=== PATIENT | female | born 1990 | race African-American/Black ===

== ENCOUNTER 2017-10-29 00:54 | Inpatient (IN) ==
[2017-10-29] MEDS ORDERED: BUTORPHANOL 2 MG/ML VIAL IV PRN (01:12)
[2017-10-29] MEDS ORDERED: MEPERIDINE 50 MG/1 ML VIAL IM PRN (01:12)
[2017-10-29] MEDS ORDERED: ONDANSETRON 4 MG/2 ML VIAL IV PRN (01:12)
[2017-10-29] MEDS: LACTATED RINGERS 1,000 ML IV SCH ×2 (01:15→02:30)
[2017-10-29 01:35] LABS: Basophils % 0.2 % (0.0-0.8); Eosinophils # 0.1 10*3/uL (0.0-0.87); Eosinophils % 0.7 % (0.00-10.9); Hematocrit 30.2 VOL% (35.7-47.0); Hemoglobin 9.7 GM/DL (12.0-16.0); Immature Granulocytes % 0.9 %; Immature Granulocytes Absolute 0.13 #; Lymphocytes # 3.2 10*3/uL (1.4-4.0); Lymphocytes % 21.4 % (21.3-54.2); Mean Corpuscular HGB Conc 32.1 GM/DL (32-36); Mean Corpuscular Hemoglobin 26 PG (27-34); Mean Corpuscular Volume 80.1 FL (87-102); Mean Platelet Volume 10.6 FL (9.6-12.0); Monocytes # 1.2 10*3/uL (0.11-0.8); Neutrophils # 10.2 10*3/uL (1.4-7.4); Neutrophils % 68.8 % (38.7-73.9); Platelet Count 282 T/CUMM (130-400); Red Blood Count 3.77 MC/CUMM (3.8-5.5); Red Cell Distribution Width 14.5 % (9.3-17.3); White Blood Count 14.8 T/CUMM (4-12)
[2017-10-29] MEDS ORDERED: OXYTOCIN/LR 20 UNIT/1,000 ML BAG IV ONE ×2 (01:41→14:34)
[2017-10-29 01:42] LABS: Apearance,Urine Slightly Hazy (Clear); Bilirubin,Urine Negative (Negative); Blood, Urine Small mg/dL (Negative); Glucose,Urine (UA) Negative (Negative); Ketones,Urine 80 mg/dL (Negative); Mucus,Urine Occasional /LPF (Occasional); Nitrite,Urine Negative (Negative); Protein,Urine Negative; RBC,Urine 1 /HPF (0-4); Squamous Epithelial Cell,Urine Occasional /HPF (0-10); Urine Color Yellow (Yellow); Urine Specific Gravity 1.017 (1.001-1.035); Urine Urobilinogen < 2.0 EU/DL (0.2-1.0); WBC,Urine 3 /HPF (0-6)
[2017-10-29 01:57] LABS: Alanine Aminotransferase 19 U/L (13-56); Alkaline Phosphatase 199 U/L (45-117); Aspartate Amino Transferase 16 U/L (0-37); Bilirubin,Total < 0.39 MG/DL (0.2-1.0); Blood Urea Nitrogen 7 MG/DL (7-18); Glucose 85 MG/DL (74-106); Osmolality,Calculated 271.7 MOS/KG (273-304); Potassium 4.1 MMOL/L (3.5-5.1); Sodium 138 MMOL/L (136-145)
[2017-10-29 02:08] LABS: Barbiturates Screen,Urine Negative (Negative); Benzodiazepines Screen,Urine Negative (Negative); Cannabinoid Screen,Urine Negative (Negative); Opiate Screen,Urine Negative (Negative); Phencyclidine Screen,Urine Negative (Negative)
[2017-10-29] MEDS ORDERED: LIDOCAINE 1% 50 ML VIAL ONE (04:36)
[2017-10-29] MEDS ORDERED: miSOPROStol 200 MCG TABLET ONE (07:08)
[2017-10-29 10:25] LABS: Cord Venous Blood HCO3 22.7 MMOL/L; Cord Venous Blood PCO2 37.1 MMHG; Cord Venous Blood PO2 38.3
[2017-10-29] MEDS ORDERED: MEASLES/MUMPS/RUBELLA VACCINE 0.5 ML VIAL SUBCUT ONE (14:34)
[2017-10-29] MEDS ORDERED: DIPH/TET/ACEL PERT BOOSTER VACCINE 0.5 ML VIAL IM ONE (14:34)
[2017-10-29] MEDS ORDERED: WITCH HAZEL PADS 100/JAR TOP PRN (14:34)
[2017-10-29] MEDS ORDERED: HYDROCORTISONE 2.5% RECTAL CREAM 30 GM TUBE TOP PRN (14:34)
[2017-10-29] MEDS ORDERED: oxyCODONE/ACETAMINOPHEN 5-325 MG TABLET PO PRN ×2 (14:34)
[2017-10-29] MEDS ORDERED: ACETAMINOPHEN 325 MG TABLET PO PRN (14:34)
[2017-10-29] MEDS ORDERED: BISACODYL 10 MG SUPP RECTAL PRN (14:34)
[2017-10-29] MEDS ORDERED: BENZOCAINE 20%/MENTHOL 0.5% SPRAY 56 GM CAN TOP PRN (14:34)
[2017-10-29] MEDS ORDERED: RHO(D) IMMUNE GLOBULIN 300 MCG SYRINGE IM ONE (14:34)
[2017-10-29] MEDS ORDERED: LANOLIN 50% CREAM 0.3 OZ TUBE TOP PRN (14:34)
[2017-10-29] MEDS: DOCUSATE SODIUM 100 MG CAPSULE PO SCH (21:14)
[2017-10-29] MEDS: IBUPROFEN 800 MG TABLET PO PRN (21:14)
[2017-10-30 02:34] LABS: Basophils % 0.2 % (0.0-0.8); Eosinophils # 0.1 10*3/uL (0.0-0.87); Eosinophils % 0.4 % (0.00-10.9); Hematocrit 24.4 VOL% (35.7-47.0); Hemoglobin 8.1 GM/DL (12.0-16.0); Immature Granulocytes % 0.9 %; Immature Granulocytes Absolute 0.19 #; Lymphocytes # 3.7 10*3/uL (1.4-4.0); Lymphocytes % 16.9 % (21.3-54.2); Mean Corpuscular HGB Conc 33.2 GM/DL (32-36); Mean Corpuscular Hemoglobin 26 PG (27-34); Mean Corpuscular Volume 79.5 FL (87-102); Mean Platelet Volume 10.7 FL (9.6-12.0); Monocytes # 1.9 10*3/uL (0.11-0.8); Monocytes % 8.7 % (1.7-12.7); Neutrophils % 72.9 % (38.7-73.9); Platelet Count 248 T/CUMM (130-400); Red Blood Count 3.07 MC/CUMM (3.8-5.5); Red Cell Distribution Width 14.6 % (9.3-17.3); White Blood Count 21.8 T/CUMM (4-12)
[2017-10-30 02:56] LABS: Band Neutrophils 4 % (0-10); Lymphocytes 14 % (20-55); Segmented Neutrophils 77 % (50-85); Total Cells Counted 100
[2017-10-30 02:58] LABS: Platelet Estimate Normal
[2017-10-30 02:59] LABS: Burr Cells Few; Microcytosis 2+
[2017-10-30] MEDS: DOCUSATE SODIUM 100 MG CAPSULE PO SCH ×2 (09:22→20:51)
[2017-10-30] MEDS: FERROUS SULFATE 325 MG TABLET PO SCH (20:51)
[2017-10-30] MEDS: IBUPROFEN 800 MG TABLET PO PRN (23:56)
[2017-10-31 07:49] VITALS: BP 117/72
[2017-10-31] MEDS: DOCUSATE SODIUM 100 MG CAPSULE PO SCH (08:48)
[2017-10-31] MEDS: FERROUS SULFATE 325 MG TABLET PO SCH (08:48)
[2017-10-31] MEDS ORDERED: DIPH/TET/ACEL PERT BOOSTER VACCINE 0.5 ML VIAL IM ONE (10:30)
== END 2017-10-31 11:05 | disposition home or self-care (01) | DRG 775 ==
LOC: N.LDOUT 00:54 → N.LD 00:56 → N.OB 10-30 13:41
PROVIDERS: ADMIT Obstetrics & Gynecology; ATTEND Obstetrics & Gynecology

== ENCOUNTER 2018-05-25 19:31 | Observation (INO) ==
[2018-05-25] MEDS ORDERED: MORPHINE 4 MG/1 ML VIAL IV STA (20:02)
[2018-05-25] MEDS ORDERED: ONDANSETRON 4 MG/2 ML VIAL IV STA (20:02)
[2018-05-25] MEDS ORDERED: KETOROLAC 30 MG/1 ML VIAL IV STA (20:02)
[2018-05-25 20:26] LABS: Basophils % 0.2 % (0.0-0.8); Eosinophils # 0.1 10*3/uL (0.0-0.87); Eosinophils % 0.4 % (0.00-10.9); Hematocrit 37.3 VOL% (35.7-47.0); Hemoglobin 11.7 GM/DL (12.0-16.0); Immature Granulocytes % 0.3 %; Immature Granulocytes Absolute 0.05 #; Lymphocytes # 2.2 10*3/uL (1.4-4.0); Lymphocytes % 14.2 % (21.3-54.2); Mean Corpuscular HGB Conc 31.4 GM/DL (32-36); Mean Corpuscular Hemoglobin 26 PG (27-34); Mean Corpuscular Volume 81.3 FL (87-102); Mean Platelet Volume 10.9 FL (9.6-12.0); Monocytes # 1.2 10*3/uL (0.11-0.8); Monocytes % 7.3 % (1.7-12.7); Neutrophils # 12.2 10*3/uL (1.4-7.4); Neutrophils % 77.6 % (38.7-73.9); Platelet Count 323 T/CUMM (130-400); Red Blood Count 4.59 MC/CUMM (3.8-5.5); Red Cell Distribution Width 14.2 % (9.3-17.3); White Blood Count 15.7 T/CUMM (4-12)
[2018-05-25 20:38] LABS: Albumin 3.8 G/DL (3.4-5.0); Apearance,Urine CLEAR (Clear); Bilirubin,Total 0.4 MG/DL (0.2-1.0); Bilirubin,Urine Negative (Negative); Blood, Urine Negative (Negative); Calcium 9.3 MG/DL (8.5-10.1); Glucose,Urine (UA) Negative (Negative); Ketones,Urine 5 mg/dL (Negative); Nitrite,Urine Negative (Negative); Osmolality,Calculated 272.7 MOS/KG (273-304); Potassium 3.9 MMOL/L (3.5-5.1); Protein,Urine Negative; RBC,Urine <1 /HPF (0-4); Squamous Epithelial Cell,Urine Occasional /HPF (0-10); Total Protein 8.8 G/DL (6.4-8.3); Urine Color Yellow (Yellow); Urine Specific Gravity 1.013 (1.001-1.035); WBC,Urine <1 /HPF (0-6)
[2018-05-25] MEDS ORDERED: PIPERACILLIN/TAZOBACTAM 3,375 MG in SODIUM CHLORIDE 0.9% 100 ML IV STA (21:28)
[2018-05-25] MEDS ORDERED: metroNIDAZOLE INJ 500 MG in PREMIX 1 EACH IV STA (21:28)
[2018-05-25] MEDS ORDERED: KETOROLAC 15 MG/1 ML VIAL IV PRN (21:29)
[2018-05-25] MEDS: DEXTROSE 5% LACTATED RINGERS 1,000 ML IV SCH (22:20)
[2018-05-25] MEDS: HYDROmorphone 2 MG/1 ML VIAL IV PRN (22:57)
[2018-05-26] MEDS: ONDANSETRON 4 MG/2 ML VIAL IV PRN ×3 (02:08→15:13)
[2018-05-26 05:01] LABS: Basophils % 0.2 % (0.0-0.8); Eosinophils # 0.1 10*3/uL (0.0-0.87); Eosinophils % 0.6 % (0.00-10.9); Hematocrit 33.6 VOL% (35.7-47.0); Hemoglobin 10.4 GM/DL (12.0-16.0); Immature Granulocytes % 0.3 %; Immature Granulocytes Absolute 0.04 #; Lymphocytes # 1.7 10*3/uL (1.4-4.0); Lymphocytes % 13.7 % (21.3-54.2); Mean Corpuscular Hemoglobin 25 PG (27-34); Mean Platelet Volume 11.2 FL (9.6-12.0); Monocytes # 0.9 10*3/uL (0.11-0.8); Monocytes % 7.3 % (1.7-12.7); Neutrophils # 9.9 10*3/uL (1.4-7.4); Neutrophils % 77.9 % (38.7-73.9); Platelet Count 264 T/CUMM (130-400); Red Cell Distribution Width 14.2 % (9.3-17.3); White Blood Count 12.7 T/CUMM (4-12)
[2018-05-26 05:36] LABS: Albumin 3.3 G/DL (3.4-5.0); Bilirubin,Total 0.6 MG/DL (0.2-1.0); Calcium 9.1 MG/DL (8.5-10.1); Osmolality,Calculated 277.5 MOS/KG (273-304); Potassium 4.1 MMOL/L (3.5-5.1); Total Protein 7.7 G/DL (6.4-8.3)
[2018-05-26] MEDS: DEXTROSE 5% LACTATED RINGERS 1,000 ML IV SCH ×4 (05:56→21:16)
[2018-05-26] MEDS ORDERED: metroNIDAZOLE INJ 500 MG in PREMIX 1 EACH IV SCH (06:00)
[2018-05-26] MEDS: PIPERACILLIN/TAZOBACTAM 3,375 MG in SODIUM CHLORIDE 0.9% 100 ML IV SCH ×3 (06:24→21:32)
[2018-05-26] MEDS: HYDROmorphone 2 MG/1 ML VIAL IV PRN ×4 (07:27→19:17)
[2018-05-26] MEDS: PANTOPRAZOLE 40 MG TABLET PO SCH (08:20)
[2018-05-26] MEDS ORDERED: diphenhydrAMINE CAP 25 MG CAPSULE PO PRN (21:50)
[2018-05-27] MEDS: PIPERACILLIN/TAZOBACTAM 3,375 MG in SODIUM CHLORIDE 0.9% 100 ML IV SCH (05:17)
[2018-05-27] MEDS: DEXTROSE 5% LACTATED RINGERS 1,000 ML IV SCH ×2 (05:34→12:57)
[2018-05-27 05:48] LABS: Basophils % 0.2 % (0.0-0.8); Eosinophils # 0.1 10*3/uL (0.0-0.87); Hematocrit 30.3 VOL% (35.7-47.0); Hemoglobin 9.3 GM/DL (12.0-16.0); Immature Granulocytes % 0.4 %; Immature Granulocytes Absolute 0.04 #; Lymphocytes # 2.6 10*3/uL (1.4-4.0); Lymphocytes % 23.7 % (21.3-54.2); Mean Corpuscular HGB Conc 30.7 GM/DL (32-36); Mean Corpuscular Hemoglobin 25 PG (27-34); Mean Corpuscular Volume 81.2 FL (87-102); Mean Platelet Volume 10.3 FL (9.6-12.0); Monocytes # 0.8 10*3/uL (0.11-0.8); Monocytes % 7.7 % (1.7-12.7); Neutrophils # 7.4 10*3/uL (1.4-7.4); Platelet Count 260 T/CUMM (130-400); Red Blood Count 3.73 MC/CUMM (3.8-5.5); Red Cell Distribution Width 14.2 % (9.3-17.3)
[2018-05-27 06:05] LABS: Albumin 2.9 G/DL (3.4-5.0); Bilirubin,Total 0.8 MG/DL (0.2-1.0); Calcium 8.4 MG/DL (8.5-10.1); Osmolality,Calculated 277.3 MOS/KG (273-304); Potassium 3.8 MMOL/L (3.5-5.1)
[2018-05-27] MEDS: PANTOPRAZOLE 40 MG TABLET PO SCH (08:04)
[2018-05-27 12:38] VITALS: BP 105/59
== END 2018-05-27 13:30 | disposition home or self-care (01) ==
LOC: N.ED 19:31 → N.EDINP 19:31 → N.3E 21:51
PROVIDERS: ADMIT Surgery; ATTEND Surgery